=== PATIENT | female | born 2000 | race Caucasian/White ===

== ENCOUNTER 2022-11-22 09:29 | Day surgery (SDC) | payer MEDICAID, OTHER ==
[2022-11-22 09:55] LABS: BASOPHILS # (AUTO) 0.1 10^3/uL (0.0-0.1); BASOPHILS % (AUTO) 0.4 %; EOSINOPHILS # (AUTO) 0.1 10^3/uL (0.0-0.7); EOSINOPHILS % (AUTO) 0.4 %; HCT - HEMATOCRIT 42.5 % (37.0-47.0); HGB - HEMOGLOBIN 14.3 g/dL (12.0-16.0); LYMPHOCYTES # (AUTO) 2.6 10^3/uL (1.5-3.5); MEAN CORPUSCULAR HEMOGLOBIN 29.7 pg (27.0-31.0); MEAN CORPUSCULAR HGB CONC 33.6 g/dL (32.0-36.0); MEAN CORPUSCULAR VOLUME 88.4 fL (81.0-99.0); MEAN PLATELET VOLUME 9.6 fL (7.9-10.8); MONOCYTES # (AUTO) 0.7 10^3/uL (0.0-1.0); NEUTROPHILS # (AUTO) 8.5 10^3/uL (1.5-6.6); NEUTROPHILS % (AUTO) 70.9 %; PLT - PLATELET COUNT 359 10^3/uL (130-450); RED BLOOD COUNT 4.81 10^6/uL (4.20-5.40); RED CELL DISTRIBUTION WIDTH 12.7 % (12.0-15.0); WHITE BLOOD COUNT 11.9 x10^3/uL (4.8-10.8)
[2022-11-22 10:00] LABS: BILIRUBIN,URINE NEGATIVE (NEGATIVE); GLUCOSE, URINE (UA) NEGATIVE (NEGATIVE); KETONES,URINE (UA) NEGATIVE (NEGATIVE); LEUKOCYTE ESTERASE, URINE MODERATE (NEGATIVE); NITRITE,URINE NEGATIVE (NEGATIVE); OCCULT BLOOD,URINE NEGATIVE (NEGATIVE); PH,URINE 5.5 PH (5.0-7.5); PROTEIN,URINE NEGATIVE (NEGATIVE); UROBILINOGEN,URINE 0.2 (NORMAL) E.U./dL (NORMAL)
[2022-11-22 10:06] LABS: CLARITY,URINE SL (CLEAR); HCG UR QUAL NEGATIVE
[2022-11-22 10:07] LABS: BACTERIA,URINE Moderate /HPF (None Seen); CRYSTALS,URINE 3-5 Calcium Oxalate /LPF; MUCUS,URINE Moderate Strands; RBC,URINE 0-5 /HPF (0-5); SQUAMOUS EPITHELIAL CELL,UR MOD Squamous (<= Few)
[2022-11-22 10:15] LABS: ALBUMIN 4.4 g/dL (3.2-5.5); ALBUMIN/GLOBULIN RATIO 1.1 (1.0-2.2); BILIRUBIN,TOTAL 0.6 mg/dL (0.2-1.0); CALCIUM 9.9 mg/dL (8.5-10.3); CREATININE 0.9 mg/dL (0.4-1.0); POTASSIUM 3.8 mmol/L (3.5-5.0); TOTAL PROTEIN 8.3 g/dL (6.7-8.2)
[2022-11-22] MEDS ORDERED: ONDANSETRON 4 MG/2 ML VIAL IVP STA (10:25)
[2022-11-22] MEDS ORDERED: KETOROLAC 15 MG/ML VIAL IVP STA (10:25)
[2022-11-22] MEDS ORDERED: HYDROmorphone 1 MG/ML CARPUJECT IVP STA ×2 (10:25→12:42)
[2022-11-22] MEDS ORDERED: SODIUM CHLORIDE 0.9% 1,000 ML IV STA (10:25)
--- NOTE | 2022-11-22 10:26 | ED Physician Documentation ---
PD HPI ABD PAIN - Stated complaint Stated Complaint: ABD/LOW BK PX - Chief complaint Chief Complaint: Abd Pain - History obtained from History obtained from: Patient - History of Present Illness Timing - onset: How many days ago (2) Timing - duration: Days (2) Timing - details: Gradual onset Quality: Cramping, Aching, Pain Location: RLQ, Suprapubic Radiation: Lower back Improved by: Laying still Worsened by: Moving, Palpation Associated symptoms: Nausea, Diarrhea (today started with watery diarrhea x few movements. No noted blood.) Review of Systems Constitutional: reports: Fever, Myalgias Nose: denies: Rhinorrhea / runny nose, Congestion Throat: denies: Sore throat Respiratory: denies: Cough GI: reports: Abdominal Pain, Nausea, Vomiting, Diarrhea (few episodes this morning.). 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 She is scheduled actually for tonsillectomy on the which is in 3 days. She hopes to still be able to get the surgery done.) Psych: None - Present Medications Home Medications: Ambulatory Orders Medication Instructions Recorded Confirmed No Known Home Medications 11/22/22 11/22/22 - Allergies Allergies/Adverse Reactions: Allergies Allergy/AdvReac Type Severity Reaction Status Date / Time Penicillins Allergy Edema Verified 11/22/22 09:43 PD ED PE NORMAL - Vitals Vital signs reviewed: Yes - General General: Alert and oriented X 3, Well developed/nourished - Neck Neck: Supple, no meningeal sign, No adenopathy - Cardiac Cardiac: RRR, No murmur - Respiratory Respiratory: Clear bilaterally - Abdomen Abdomen: Normal bowel sounds, Soft, No organomegaly, Other (She has considerable tenderness in the lower abdomen midline and to the right in particular. There is some percussion tenderness. No referred tenderness from the upper abdomen. No CVA tenderness.) Results - Vitals Vitals: Vital Signs - 24 hr 11/22/22 11/22/22 11/22/22 09:38 11:03 12:00 Temperature 36.4 C L Heart Rate 88 75 66 Respiratory 16 16 16 Rate Blood Pressure 120/85 H 124/71 116/71 O2 Saturation 100 100 100 11/22/22 13:30 Temperature Heart Rate 61 Respiratory 16 Rate Blood Pressure 113/85 H O2 Saturation 99 Oxygen O2 Source Room air - Labs Labs: Laboratory Tests 11/22/22 11/22/22 11/22/22 09:50 09:51 09:51 WBC 11.9 H RBC 4.81 Hgb 14.3 Hct 42.5 MCV 88.4 MCH 29.7 MCHC 33.6 RDW 12.7 Plt Count 359 MPV 9.6 Neut # (Auto) 8.5 H Lymph # (Auto) 2.6 Reeves # (Auto) 0.7 Eos # (Auto) 0.1 Baso # (Auto) 0.1 Absolute Nucleated RBC 0.00 Nucleated RBC % 0.0 Sodium 141 Potassium 3.8 Chloride 107 Carbon Dioxide 25 Anion Gap 9.0 BUN 10 Creatinine 0.9 Estimated GFR (MDRD) 81 L Glucose 97 Calcium 9.9 Total Bilirubin 0.6 AST 26 ALT 28 Alkaline Phosphatase 75 Total Protein 8.3 H Albumin 4.4 Globulin 3.9 Albumin/Globulin Ratio 1.1 Lipase 30 Urine Color YELLOW Urine Clarity SL Urine pH 5.5 Ur Specific Hartman >=1.030 H Urine Protein NEGATIVE Urine Glucose (UA) NEGATIVE Urine Ketones NEGATIVE Urine Occult Blood NEGATIVE Urine Nitrite NEGATIVE Urine Bilirubin NEGATIVE Urine Urobilinogen 0.2 (NORMAL) Ur Leukocyte Esterase MODERATE H Urine RBC 0-5 Urine WBC 11-25 H Ur Squamous Epith Cells MOD Squamous H Urine Crystals 3-5 Calcium Oxalate Urine Bacteria Moderate H Urine Mucus Moderate Strands Ur Microscopic Review INDICATED Urine Culture Comments NOT INDICATED Urine HCG, Qual NEGATIVE - Rads (name of study) abd/pelvic CT Relevant Findings:: Discussed with rads (Appendix is at the upper limits of normal size with periappendiceal stranding consistent with mild appendicitis. No other abnormalities.), EMP independent interpretation of test, See rad report PD Medical Decision Making - ED course Complexity details: considered differential (She had onset of lower abdominal pain 2 days ago that was present for much of the day then decreased some. She was still able to eat. Pain increased again last night into today and became more severe associated with some diarrhea and nausea.), d/w patient Social Determinants of Health: The patient in the past has had recurrent tonsillitis and is actually scheduled for tonsillectomy 3 days from now. She would prefer to still be able to get her tonsil surgery. I will have her discuss with Dr. Osman the surgeon the potential for that. In the area she could have surgery on her appendix and would likely be discharged this evening. She would be sore of course but theoretically could still have surgery on her tonsils on Friday. ED course: The patient had onset of mid to lower abdominal pain 2 days ago which lasted for 6 to 8 hours and then decreased some but not completely resolved. It then increased again starting last night into this morning. She denied any dysuria. She denies any vaginal bleeding or discharge. Her menses are irregular due to prior Depo shots. She did notice several watery loose stools this morning without any noted blood or melena. It was not malodorous. The patient has ongoing pain. She has tenderness markedly in the lower abdomen predominantly on the right. There is some percussion tenderness as well. Consideration of possible viral enteritis but she has enough tenderness locally to be concern for appendicitis. She did have an IV started and was given IV Zofran and Dilaudid and Toradol. This provided her reasonable improvement in her pain and cessation of her nausea. The patient had a CT scan ordered by me for concern of appendicitis or other local bacterial infections. Her CBC showed an elevated white count after my review. Hemoglobin was normal and reviewed. Her basic chemistry panel did not show any elevation of the liver enzymes and kidney function was good as well. I reviewed the electrolytes and chemistry panel. She did have a CT scan of the abdomen and pelvis. Initial impression on my view was possible appendicitis but I waited the radiology confirmation. The radiologist called and I talked with him directly with the diagnosis of appendicitis. I called and paged Dr. Osman who is on-call for surgery. He came through the department and I discussed with him the patient and the CT findings. He will evaluate the patient. On reexamination the patient was having some increasing pain again and she is given a repeat dose of Dilaudid 1 mg IV. This improved her symptoms. The patient is now awaiting presumed going to the OR for appendicitis. I did initiate some ceftriaxone and metronidazole given she is allergic to penicillin. She is maintained n.p.o. Departure - Departure Disposition: ED Transfer to [facility] Clinical Impression: Lower abdominal pain, Acute appendicitis Condition: Stable Record reviewed to determine appropriate education?: Yes
[2022-11-22] MEDS ORDERED: iohexoL-300 100 ML VIAL ONE (11:29)
--- NOTE | 2022-11-22 12:28 | CT Report ---
PROCEDURE: ABDOMEN/PELVIS W INDICATIONS: lower abd pain CONTRAST: 100ml omni 300 TECHNIQUE: After the administration of intravenous contrast, 5 mm thick sections acquired from the diaphragms to the symphysis. 5 mm thick coronal and sagittal reformats were acquired. For radiation dose reducti on, the following was used: automated exposure control, adjustment of mA and/or kV according to mildred ent size. COMPARISON: None. FINDINGS: Image quality: Excellent. ABDOMEN: Lung bases: Lung bases are clear. Heart size is normal. Solid organs: Liver and spleen are normal in size and enhancement. Focal fatty eventration at the fa lciform ligament. Gallbladder is within normal limits. Biliary system is non dilated. Pancreas enh ances normally. No adrenal nodules. Kidneys demonstrate normal size and enhancement, without hydron ephrosis. Peritoneum and bowel: The appendix is at the upper limits of normal in size measuring 0.7 cm, (03/09). There is minimal periappendiceal stranding. No appendicolith is seen. No extraluminal gas. No small bowel obstruction. Nodes and vessels: No retroperitoneal or mesenteric adenopathy by size criteria. Aorta and inferior vena cava are normal in size. Miscellaneous: No ventral hernias. PELVIS: Genitourinary: Bladder wall thickness is normal. Anteverted uterus. No free fluid. Miscellaneous: No inguinal hernias or adenopathy. Bones: No suspicious bony lesions. No vertebral body compression fractures. IMPRESSION: Findings most consistent with mild appendicitis. Results were communicated to Dr. Sukh Kraus at 11/22/2022 12:25 PM PST. Reviewed by: Enrico Rodriguez MD on 11/22/2022 12:26 PM PST Approved by: Enrico Rodriguez MD on 11/22/2022 12:26 PM PST Station ID: [id number]
[2022-11-22] MEDS ORDERED: iohexoL-300 100 ML VIAL IVP ONE (12:54)
[2022-11-22] MEDS ORDERED: cefTRIAXone 1 GM VIAL IVP STA (13:03)
[2022-11-22] MEDS ORDERED: metroNIDAZOLE 500 MG/100 ML 500 MG/100 ML BAG IV ONE (13:35)
--- NOTE | 2022-11-22 14:14 | ANESTHESIA ---
Pre-Anesthesia VS, & Labs - Diagnosis appendicitis - Procedure laparoscopic appendectomy Vital Signs: Temp Pulse Resp BP Pulse Ox O2 Flow Rate 36.4 C L 61 16 113/85 H 99 11/22/22 09:38 11/22/22 13:30 11/22/22 13:30 11/22/22 13:30 11/22/22 13:30 Height: 5 ft 9 in Weight (kg): 79.379 kg Body Mass Index: 25.8 BMI Classification: Overweight - NPO >8 hours - Is Patient ?: No - Lab Results Current Lab Results: Laboratory Tests 11/22/22 09:51: Sodium 141, Potassium 3.8, Chloride 107, Carbon Dioxide 25, Anion Gap 9.0, BUN 10, Creatinine 0.9, Estimated GFR (MDRD) 81 L, Glucose 97, Calcium 9.9, Total Bilirubin 0.6, AST 26, ALT 28, Alkaline Phosphatase 75, Total Protein 8.3 H, Albumin 4.4, Globulin 3.9, Albumin/Globulin Ratio 1.1, Lipase 30 11/22/22 09:51: WBC 11.9 H, RBC 4.81, Hgb 14.3, Hct 42.5, MCV 88.4, MCH 29.7, MCHC 33.6, RDW 12.7, Plt Count 359, MPV 9.6, Neut # (Auto) 8.5 H, Lymph # (Auto) 2.6, [place] # (Auto) 0.7, Eos # (Auto) 0.1, Baso # (Auto) 0.1, Absolute Nucleated RBC 0.00, Nucleated RBC % 0.0 Fish Bones: 11/22/22 09:51 11/22/22 09:51 Home Medications and Allergies Active Medications Metronidazole (Flagyl 500 Mg/100 Ml) 500 mg in 100 mls @ 100 mls/hr IV ONCE ONE Stop: 11/22/22 14:34 Last Admin: 11/22/22 13:36 Dose: 100 mls/hr No Known Home Medications 11/22/22 Allergies/Adverse Reactions: Allergies Allergy/AdvReac Type Severity Reaction Status Date / Time Penicillins Allergy Edema Verified 11/22/22 09:43 Exam General: Alert, Oriented x3 Mallampati classification: I Thyromental Distance: greater than 6 cm Respiratory: Lungs clear Cardiovascular: Regular rate, Normal S1, Normal S2 Plan Anesthesia Type: General Consent for Procedure(s) Verified and Reviewed: Yes Code Status: Attempt Resuscitation ASA classification: 2-Mild systemic disease Is this case an emergency?: Yes
[2022-11-22] MEDS ORDERED: LIDOCAINE MPF 2%-EPI 1:200000 20 ML VIAL ONE (14:17)
[2022-11-22] MEDS ORDERED: BUPIVACAINE 0.25% PF 10 ML VIAL ONE (14:17)
--- NOTE | 2022-11-22 15:24 | HISTORY & PHYSICAL EXAMINATION ---
Chief Complaint - Chief Complaint Chief Complaint: abdominal pain History of Present Illness - History Obtained From Records Reviewed: yes History obtained from: pt Exam Limitations: none - History of Present Illness HPI Comment/Other: right lower quarant pain x 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 She is scheduled actually for tonsillectomy on the which is in 3 days. She hopes to still be able to get the surgery done.) Psych: reports: None Meds/Allgy - Home Medications Home Medications: Ambulatory Orders Medication Instructions Recorded Confirmed No Known Home Medications 11/22/22 11/22/22 - Allergies Allergies/Adverse Reactions: Allergies Allergy/AdvReac Type Severity Reaction Status Date / Time Penicillins Allergy Edema Verified 11/22/22 09:43 Review of Systems - Other Findings Other Findings: 10 pt ros as above otherwise unremarkable Exam - Vital Signs Reviewed Vital Signs: Yes Vital Signs: Vital Signs x48h Temp Pulse Resp BP Pulse Ox 11/22/22 15:00 66 16 97/80 99 11/22/22 13:30 61 16 113/85 H 99 11/22/22 12:00 66 16 116/71 100 11/22/22 11:03 75 16 124/71 100 11/22/22 09:38 36.4 C L 88 16 120/85 H 100 - Physical Exam General Appearance: positive: No acute distress, Alert Eyes Bilateral: positive: PERRL, EOMI ENT: positive: No signs of dehydration Neck: positive: No JVD, Trachea midline Respiratory: positive: No respiratory distress, Breath sounds nml Cardiovascular: positive: Regular rate & rhythm Abdomen: positive: No distention, Other (right lower quadrant tenderness) Neurologic/Psychiatric: positive: Oriented x3 Conclusion/Plan - Problem List (1) Acute appendicitis Conclusion/Plan: plan appendectomy. parq held and consent obtained - Lab Results Fish Bones: 11/22/22 09:51 11/22/22 09:51 - Diagnostic Imaging Results Diagnostic Imaging Results: positive: Read independently
[2022-11-22] MEDS ORDERED: PROPOFOL 200 MG/20 ML VIAL IVP ONE (15:37)
[2022-11-22] MEDS ORDERED: ONDANSETRON 4 MG/2 ML VIAL ONE (15:37)
[2022-11-22] MEDS ORDERED: DEXAMETHASONE 4 MG/ML VIAL ONE (15:37)
[2022-11-22] MEDS ORDERED: ROCURONIUM 50 MG/5 ML VIAL ONE (15:37)
[2022-11-22] MEDS ORDERED: MIDAZOLAM 2 MG/2 ML VIAL ONE (15:39)
[2022-11-22] MEDS ORDERED: fentaNYL 100 MCG/2 ML VIAL ONE ×2 (15:39→17:42)
[2022-11-22] MEDS ORDERED: LIDOCAINE-PF 2% 10 ML AMP SUBQ ONE (16:07)
[2022-11-22] MEDS ORDERED: METOCLOPRAMIDE 10 MG/2 ML VIAL IVP PRN (16:16)
[2022-11-22] MEDS ORDERED: ePHEDrine 50 MG/ML VIAL IVP PRN (16:16)
[2022-11-22] MEDS ORDERED: NALOXONE 0.4 MG/ML VIAL IVP PRN (16:16)
[2022-11-22] MEDS ORDERED: ATROPINE ABBOJECT 1 MG/10 ML SYRINGE IVP PRN (16:16)
[2022-11-22] MEDS ORDERED: MORPHINE 2 MG/ML CARPUJECT IVP PRN (16:16)
[2022-11-22] MEDS ORDERED: HYDROmorphone 0.5 MG/0.5 ML SYRINGE IVP PRN (16:16)
[2022-11-22] MEDS ORDERED: ONDANSETRON 4 MG/2 ML VIAL IVP PRN ×2 (16:16→17:31)
[2022-11-22] MEDS ORDERED: BUPIVACAINE 0.25% PF 10 ML VIAL SUBQ ONE (16:24)
[2022-11-22] MEDS ORDERED: SEVOFLURANE 250 ML LIQUID INH ONE (16:28)
[2022-11-22] MEDS ORDERED: ACETAMINOPHEN 1,000 MG/100 ML 1,000 MG/100 ML BAG IV ONE (16:40)
[2022-11-22] MEDS ORDERED: SUGAMMADEX 200 MG/2 ML VIAL IVP ONE (16:55)
[2022-11-22] MEDS ORDERED: LACTATED RINGERS 1,000 ML IV SCH (17:00)
[2022-11-22] MEDS ORDERED: KETOROLAC 30 MG/ML VIAL ONE (17:00)
[2022-11-22] MEDS ORDERED: LACTATED RINGERS 1,000 ML IV ONE (17:30)
[2022-11-22] MEDS ORDERED: HYDROcod/ACETAM 5/325 MG TABLET PO PRN (17:31)
--- NOTE | 2022-11-22 17:37 | OPERATIVE REPORT ---
Operative Report - General Procedure Date: 11/22/22 Planned Procedure: lap appy Pre-Op Diagnosis: appendicitis Procedure Performed: lap appy and lysis of adhesions Post Op Diagnosis: same and congential extra adhesions anterior colon to anterior abd wall. - Procedure Note Primary Surgeon: sean hsu Anesthesia Technique: General ET tube, Local Pathology: appendix Estimated Blood Loss (mL): 2 Drain/Tube Type: Other (none) Indications: appendicitis Findings: as above. 20 ml thin green fluid in pelvis. normal tubes and ovaries Complications: none - Other Other Information/Narrative: The patient was properly identified brought to the operating room and placed in supine position. The patient was previously given antibiotics. Sequential compression devices were placed. General endotracheal anesthesia was induced. The patient was prepped and draped in a sterile fashion. Local anesthetic was given to incision areas. An infraumbilical incision was made in and proceeded down to the fascia. The fascia was incised lifted upwards and abdomen entered with a Veress needle. CO2 was insufflated to a pressure of 15. A 12 mm trocar was placed with 30 degree scope. There was no evidence of injury from Veress needle or trocar placement. Under direct vision a 5 mm trocar was placed suprapubic and a 5 mm trocar was placed in the right upper quadrant. Appendix was identified and retracted anteriorly. 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 These were taken down with Metzenbaum and cautery. The right colon otherwise had normal attachments. Peritoneal attachments Of the appendix were taken down with careful use of cautery. Appendix was mobilized more anterior. A plane was then created between the mesoappendix and the appendix at the cecum. Appendix was divided with an Endo UDAY intestinal load to include up a small portion of the cecum. The mesoappendix was then divided with an Endo UDAY vascular load. There was secure closure at the cecum and hemostasis was assured. The appendix was brought out. The abdomen was thoroughly irrigated and hemostasis again assured. Trochars were removed under direct vision. Fascia at the infraumbilical site was closed with a running 0 Vicryl suture. Subcutaneous tissue was irrigated and skin reapproximated with buried interrupted 4-0 Monocryl. Dressings were applied. The patient tolerated the procedure well was awakened and brought to recovery in good condition.
[2022-11-22] MEDS: fentaNYL 100 MCG/2 ML VIAL IVP PRN ×2 (17:43→17:53)
--- NOTE | 2022-11-22 17:57 | ANESTHESIA POST OP EVALUATION ---
Anesthesia Post Eval - Post Anesthesia Eval Vitals: Last Vital Signs Temp 36.3 C L 11/22/22 17:49 Pulse 64 11/22/22 17:49 Resp 16 11/22/22 17:49 BP 121/80 11/22/22 17:49 Pulse Ox 99 11/22/22 17:49 O2 Flow Rate CV Function Including HR & BP: Stable Pain Control: Satisfactory Nausea & Vomiting: Negative Mental Status: Baseline Respiratory Status: Airway Patent Hydration Status: Satisfactory Anesthesia Complications: None
[2022-11-22] MEDS: HYDROmorphone 0.5 MG/0.5 ML SYRINGE IVP PRN ×2 (21:19→22:17)
[2022-11-22 23:00] VITALS: BP 111/67
== END 2022-11-22 23:20 | disposition home or self-care (01) ==
LOC: ED 09:29 → SDS 14:35 → MS2 17:57 → SDS 23:20
PROVIDERS: ATTEND Surgery
PROC: 0DTJ4ZZ Resection of Appendix, Percutaneous Endoscopic Approach (ICD-10-PCS; principal; 2022-11-22 16:15)
DX: K35.80 Unspecified acute appendicitis (principal)
CPT/HCPCS: 36415; 44970; 74177; 80053; 81001; 81025; 83690; 85025; 96365; 96375; 96376; 99284; 99285; A9270; J0131; J1170; J3490; J7120; Q9967; 81003; 87086

== ENCOUNTER 2022-12-01 16:39 | Emergency (ER) | payer MEDICAID ==
[2022-12-01 18:55] LABS: BASOPHILS % (AUTO) 0.5 %; EOSINOPHILS # (AUTO) 0.1 10^3/uL (0.0-0.7); EOSINOPHILS % (AUTO) 1.6 %; HCT - HEMATOCRIT 40.7 % (37.0-47.0); HGB - HEMOGLOBIN 13.3 g/dL (12.0-16.0); LYMPHOCYTES # (AUTO) 2.6 10^3/uL (1.5-3.5); LYMPHOCYTES % (AUTO) 32.3 %; MEAN CORPUSCULAR HGB CONC 32.7 g/dL (32.0-36.0); MEAN CORPUSCULAR VOLUME 91.7 fL (81.0-99.0); MEAN PLATELET VOLUME 9.9 fL (7.9-10.8); MONOCYTES # (AUTO) 0.6 10^3/uL (0.0-1.0); MONOCYTES % (AUTO) 7.2 %; NEUTROPHILS # (AUTO) 4.7 10^3/uL (1.5-6.6); PLT - PLATELET COUNT 314 10^3/uL (130-450); RED BLOOD COUNT 4.44 10^6/uL (4.20-5.40); RED CELL DISTRIBUTION WIDTH 13.4 % (12.0-15.0); WHITE BLOOD COUNT 8.1 x10^3/uL (4.8-10.8)
[2022-12-01 19:08] LABS: ALBUMIN/GLOBULIN RATIO 1.2 (1.0-2.2); BILIRUBIN,TOTAL 0.6 mg/dL (0.2-1.0); CALCIUM 9.4 mg/dL (8.5-10.3); CREATININE 0.7 mg/dL (0.4-1.0); POTASSIUM 4.2 mmol/L (3.5-5.0); TOTAL PROTEIN 7.3 g/dL (6.7-8.2)
[2022-12-01] MEDS ORDERED: HYDROmorphone 1 MG/ML CARPUJECT IM STA (20:31)
[2022-12-01] MEDS ORDERED: KETOROLAC 30 MG/ML VIAL IM STA (20:31)
[2022-12-01] MEDS ORDERED: HYDROcod/ACETAM 5/325 MG TABLET PO STA (21:22)
[2022-12-01] MEDS ORDERED: DEXAMETHASONE 10 MG/ML VIAL PO STA (21:22)
[2022-12-01] MEDS ORDERED: CHERRY SYRUP 10 ML UDC PO ONE (21:22)
[2022-12-01] MEDS ORDERED: HYDROcod/ACET 5/325 Prepack 4 PO STA (21:22)
[2022-12-01] MEDS ORDERED: LACTULOSE 10 GM /15 ML UDC PO STA (21:23)
[2022-12-01 21:51] VITALS: BP 119/70
--- NOTE | 2022-12-04 01:57 | ED Physician Documentation ---
History of Present Illness - Stated complaint Stated Complaint: POST OP COMPLICATIONS - Chief complaint Chief Complaint: Abd Pain - History obtained from History obtained from: Patient - Additonal information Additional information: Patient has two chief complaints/concerns. She is predominantly concerned regarding feeling constipated x 9 days. She had an appendectomy ([facility]) 11/22 and she says she has not had a BM since that time. She occasionally passes gas, and very small pellet stool. She has urge to defecate and feels abdominal bloating. She was prescribed vicodin (18 tabs) 11/22 (post-operatively). Despite her report of not having any BM , she then underwent tonsillectomy three days later (11/25) at [facility] (Dr. Chen). She was prescribed oxycodone 5mg IR x 20 tablets 11/25 (post-operatively) but these were not controlling her post-operative throat pain and thus a second prescription for oxycodone 5mg IR #20 was again prescribed on 11/28. Her secondary complaint is increasing difficulty swallowing even liquids, at times says she cannot talk. I do note that she is swallowing water when I first enter room and she is able to talk with me, albeit quietly, but with full sentences and converses appropriately. She denies fevers. She says she tried to contact the surgical group at [facility] but was told no surgeon was available , that medical advice could not be given over the phone, and that she can always come to the emergency department if she feels she needs emergent evaluation. She says she then contacted her ENT group in [facility], was able to speak with someone from that group and was advised to come to the ED for evaluation. Patient has tried miralax for the constipation without effect. She otherwise has been using milder remedies such as drinking tea. Review of Systems Constitutional: denies: Fever Throat: reports: Sore throat GI: reports: Abdominal Swelling, Constipation. 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 She is scheduled actually for tonsillectomy on the which is in 3 days. She hopes to still be able to get the surgery done.) Psych: None - Past Surgical History Past Surgical History: Yes General: Appendectomy HEENT: Tonsil/Adenoidectomy - Present Medications Home Medications: Ambulatory Orders Medication Instructions Recorded Confirmed HYDROcod/ACETAM 5/325 [Ira 5/325] 1 each PO Q6H PRN #20 tablet 11/22/22 Ondansetron Odt [Zofran Odt] 4 mg PO Q6H PRN #10 tablet 11/22/22 Lactulose 10 gm PO BID PRN #120 ml 12/01/22 - Allergies Allergies/Adverse Reactions: Allergies Allergy/AdvReac Type Severity Reaction Status Date / Time Penicillins Allergy Edema Verified 12/01/22 16:44 PD ED PE NORMAL - Vitals Vital signs reviewed: Yes - General General: Alert and oriented X 3, No acute distress, Well developed/nourished - HEENT HEENT: Moist mucous membranes, Other (bilateral posterior oropharyngeal white granulation tissue, appropriate/expected appearance given recent tonsillectomy. no bleeding, no asymmetry, no erythema, and airway is widely patent) - Neck Neck: Supple, no meningeal sign - Cardiac Cardiac: RRR, No murmur - Respiratory Respiratory: No respiratory distress, Clear bilaterally - Abdomen Abdomen: Soft, Non tender, Non distended, Other (trocar sites are c/d/i without significant tenderness; no rebound or guarding. no erythema). No: Normal bowel sounds (decreased bowel sounds) Results - Vitals Vitals: Oxygen O2 Source Room air - Labs Labs: Laboratory Tests 12/01/22 12/01/22 18:50 18:50 WBC 8.1 RBC 4.44 Hgb 13.3 Hct 40.7 MCV 91.7 MCH 30.0 MCHC 32.7 RDW 13.4 Plt Count 314 MPV 9.9 Neut # (Auto) 4.7 Lymph # (Auto) 2.6 Turner # (Auto) 0.6 Eos # (Auto) 0.1 Baso # (Auto) 0.0 Absolute Nucleated RBC 0.00 Nucleated RBC % 0.0 Sodium 139 Potassium 4.2 Chloride 105 Carbon Dioxide 27 Anion Gap 7.0 BUN 13 Creatinine 0.7 Estimated GFR (MDRD) 107 Glucose 89 Calcium 9.4 Total Bilirubin 0.6 AST 16 ALT 18 Alkaline Phosphatase 57 Total Protein 7.3 Albumin 4.0 Globulin 3.3 Albumin/Globulin Ratio 1.2 Lipase 31 PD Medical Decision Making - ED course Complexity details: reviewed old records, reviewed results, re-evaluated patient, considered differential, d/w patient ED course: CBC and ER abdominal panel are without any abnormal results. She is afebrile in ED. While she does speak somewhat softly, she is easy to understand and speaks in full sentences. She is noted to be drinking sips of liquids at times, but her c/o of ongoing odynophagia would be consistent with appearance of posterior oropharynx. We discussed that stronger narcotic/opiate analgesics will both provide stronger relief while tending towards worsening constipation. After we discussed these concepts, we then discussed options for pain control and mutually agreed on IM toradol and IM dilaudid. She says she still has some oxycodone remaining but notes that it has not pr ovided adequate nor lasting relief of the sore throat/odynophagia. I discussed this case with Dr. Sparrow, insulation hoseman for [facility] ENT. He had not spoken to this patient this evening, unclear who she might have spoken to. He recommends decadron 20mg IV. As she does not have an IV, he says IM or even PO would be adequate, but he stresses the 20mg dose no matter the route. He says prescriptions for more steroids and/or pain medications can be deferred to the discretion of Dr. Chen, and thus the strong recommendation from Dr. Sparrow and me is for patient to contact Dr. Chen's group in the morning as soon as they open to arrange for immediate follow up. I instructed her to try to obtain same-day appointment, emphasizing that she would likely run out of prescription pain medication by the end of the day but that both Dr. Sparrow and me thought it best for her ENT to reevaluate the situation himself to determine next course of action regarding pain medication. On reevaluation, I explained all of this information to her and she expresses understanding of these instructions. I provided a take-home pack of vicodin, and told her that she can take one tablet of the vicodin IN ADDITION to the o xycodone she is taking. She is given 1 tablet of vicodin prior to d/c. I instructed her to continue to use the miralax, and to add fleets enemas, and lactulose (given dose of lactulose to take home with rx provided). I instructed her to contact her surgical group to update them on this problem and arrange for next available appointment for reevaluation Departure - Departure Disposition: 01 Home, Self Care Clinical Impression: Post-op pain Constipation Qualifiers: Constipation type: unspecified constipation type Qualified Code(s): K59.00 - Constipation, unspecified Condition: Good Instructions: ED Constipation, ED Post Op Pain Prescriptions: Lactulose 10 gm PO BID PRN #120 ml PRN Reason: Constipation Comments: I discussed your case with Dr. Sparrow (on-call ENT for [facility]). He recommended the one-time dose of steroid that was given in the emergency department (Decadron, which is given orally). He also recommends that you contact Dr. Chen's office in the morning to arrange for immediate follow up/reevaluation. You have been provided a take-home pack of Vicodin; you can take this in additio n to the oxycodone you are taking, but be sure to take the oxycodone no more than the label instructions. I am also providing you with a prescription for lactulose; this should help with the constipation. Discharge Date/Time: 12/01/22 21:51
== END 2022-12-01 21:51 | disposition home or self-care (01) ==
LOC: ED 16:39
DX: G89.18 Other acute postprocedural pain (principal); K59.00 Constipation, unspecified
CPT/HCPCS: 36415; 80053; 83690; 85025; 96372; 99283; 99284; A9270; J1170

== ENCOUNTER 2023-03-05 17:36 | Emergency (ER) | payer MEDICAID ==
--- NOTE | 2023-03-05 18:43 | ED Physician Documentation ---
PD HPI ABD PAIN - Stated complaint Stated Complaint: RT FLANK PAIN - Chief complaint Chief Complaint: Abd Pain - History obtained from History obtained from: Patient - History of Present Illness Quality: Cramping, Sharp Location: RUQ Radiation: Other (Epigastrium) Worsened by: Position, Palpation. No: Eating, Moving, Breathing, Other Associated symptoms: Nausea, Constipation. No: Fever, Vomiting, Hematemesis, Diarrhea, Melena, Hematochezia, Dysuria, Hematuria, Chest pain, Dizzy, Near syncope / syncope, Loss of appetite, Weight loss, Vaginal bleeding, Vaginal dc, Testicular pain, Other Similar symptoms before: Diagnosis - Additional information Additional information: 22-year-old female presents with abdominal pain and constipation. She has been dealing with the constipation for several months since she had her appendectomy in November however the last 3 days she has had increasing abdominal pain, more localized to the right upper quadrant and radiates into the epigastrium. She has had nausea but no vomiting, no fever or chills, no chest pain or difficulty breathing. She has been taking MiraLAX for constipation but does not feel like she has had any relief. She has not had any dysuria urgency or frequency and denies any chance of . She states that she is concerned because her mother of colon cancer about 4 years ago when she was only 43 years old. The patient has had a prior colonoscopy and is due for another colonoscopy for checkup as she states they found something "abnormal" When they removed her appendix. She has not been able to have this done yet however. 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 She is scheduled actually for tonsillectomy on the which is in 3 days. She hopes to still be able to get the surgery done.) Psych: None - Past Surgical History Past Surgical History: Yes General: Appendectomy HEENT: Tonsil/Adenoidectomy - Present Medications Home Medications: Ambulatory Orders Medication Instructions Recorded Confirmed HYDROcod/ACETAM 5/325 [[place] 5/325] 1 each PO Q6H PRN #20 tablet 11/22/22 Ondansetron Odt [Zofran Odt] 4 mg PO Q6H PRN #10 tablet 11/22/22 Lactulose 10 gm PO BID PRN #120 ml 12/01/22 Lactulose 10 gm PO TID PRN #30 packet 03/05/23 - Allergies Allergies/Adverse Reactions: Allergies Allergy/AdvReac Type Severity Reaction Status Date / Time Penicillins Allergy Edema Verified 03/05/23 17:47 PD ED PE NORMAL - Vitals Vital signs reviewed: Yes - General General: Alert and oriented X 3, No acute distress, Well developed/nourished - HEENT HEENT: Atraumatic, Moist mucous membranes - Cardiac Cardiac: RRR, No murmur - Respiratory Respiratory: No respiratory distress, Clear bilaterally - Abdomen Abdomen: Normal bowel sounds, Non distended, Other (Right upper quadrant tender to palpation, no distention, no other abdominal tenderness) - Back Back: No CVA TTP, No spinal TTP - Derm Derm: Normal color, Warm and dry - Neuro Neuro: Alert and oriented X 3 Eye Opening: Spontaneous Motor: Obeys Commands Verbal: Oriented GCS Score: 15 - Psych Psych: Normal mood, Normal affect Results - Vitals Vitals: Vital Signs - 24 hr 03/05/23 03/05/23 03/05/23 17:47 17:56 18:40 Temperature 36.5 C Heart Rate 80 Respiratory 16 18 17 Rate Blood Pressure 118/62 O2 Saturation 100 03/05/23 19:49 Temperature Heart Rate Respiratory 18 Rate Blood Pressure O2 Saturation Oxygen O2 Source Room air - Labs Labs: Laboratory Tests 03/05/23 03/05/23 03/05/23 18:40 18:40 18:40 WBC 7.3 RBC 4.87 Hgb 15.0 Hct 43.6 MCV 89.5 MCH 30.8 MCHC 34.4 RDW 12.1 Plt Count 255 MPV 10.9 H Neut # (Auto) 4.0 Lymph # (Auto) 2.5 [place] # (Auto) 0.7 Eos # (Auto) 0.1 Baso # (Auto) 0.1 Absolute Nucleated RBC 0.00 Nucleated RBC % 0.0 Sodium 140 Potassium 3.8 Chloride 106 Carbon Dioxide 28 Anion Gap 6.0 BUN 10 Creatinine 0.8 Estimated GFR (MDRD) 91 Glucose 71 Calcium 9.2 Total Bilirubin 0.6 AST 15 ALT 11 Alkaline Phosphatase 67 Total Protein 7.7 Albumin 4.5 Globulin 3.2 Albumin/Globulin Ratio 1.4 Lipase 37 Urine Color YELLOW Urine Clarity CLEAR Urine pH 7.5 Ur Specific [place] 1.015 Urine Protein NEGATIVE Urine Glucose (UA) NEGATIVE Urine Ketones NEGATIVE Urine Occult Blood NEGATIVE Urine Nitrite NEGATIVE Urine Bilirubin NEGATIVE Urine Urobilinogen 0.2 (NORMAL) Ur Leukocyte Esterase NEGATIVE Ur Microscopic Review NOT INDICATED Urine Culture Comments NOT INDICATED Urine HCG, Qual NEGATIVE - Rads (name of study) No standard instances Relevant Findings:: Final report received PD Medical Decision Making - ED course Complexity details: reviewed old records, reviewed results, re-evaluated patient, considered differential, d/w patient ED course: 22-year-old female presents with right upper quadrant abdominal pain For the past 3 days as well as longstanding constipation over the course of several months. She has been seen in the past for this. She states MiraLAX has not been helpful. She also has additional concerns as noted above given her mom's history of colon cancer at early age. Arrival here, the patient is nontoxic, stable vital signs. She does have right upper quadrant tenderness on exam but otherwise reassuring physical exam. Labs were obtained which were all stable, she does not have a Leukocytosis center liver function is normal, renal cyst is stable, no sign of infection. I did obtain abdominal CT though given her right upper quadrant pain and this was negative. The patient was given Toradol for her pain in advised that we will give her lactulose for her periodic constipation, she can otherwise follow-up with her PCP for this issue, and she was encouraged to schedule her outpatient colonoscopy. I discussed return precautions if new or worsening symptoms. Departure - Departure Disposition: 01 Home, Self Care Clinical Impression: Abdominal pain Qualifiers: Abdominal location: right lower quadrant Qualified Code(s): R10.31 - Right lower quadrant pain Constipation Qualifiers: Constipation type: chronic idiopathic constipation Qualified Code(s): K59.04 - Chronic idiopathic constipation Condition: Good Instructions: ED Abdominal Pain Female Non-Specific Abdominal Pain, ED Constipation Prescriptions: Lactulose 10 gm PO TID PRN #30 packet PRN Reason: Constipation Comments: Your CT scan and labs are all reassuring. I do not see substantial constipation or any reason for your abdominal pain at this time. Sometimes you can have irritable bowel syndrome or indigestion that can cause significant pain. Please do follow-up with your primary doctor and have your colonoscopy scheduled it was previously recommended.
[2023-03-05 18:57] LABS: BASOPHILS # (AUTO) 0.1 10^3/uL (0.0-0.1); BASOPHILS % (AUTO) 0.7 %; EOSINOPHILS # (AUTO) 0.1 10^3/uL (0.0-0.7); EOSINOPHILS % (AUTO) 0.8 %; HCT - HEMATOCRIT 43.6 % (37.0-47.0); LYMPHOCYTES # (AUTO) 2.5 10^3/uL (1.5-3.5); LYMPHOCYTES % (AUTO) 34.2 %; MEAN CORPUSCULAR HEMOGLOBIN 30.8 pg (27.0-31.0); MEAN CORPUSCULAR HGB CONC 34.4 g/dL (32.0-36.0); MEAN CORPUSCULAR VOLUME 89.5 fL (81.0-99.0); MEAN PLATELET VOLUME 10.9 fL (7.9-10.8); MONOCYTES # (AUTO) 0.7 10^3/uL (0.0-1.0); MONOCYTES % (AUTO) 9.2 %; PLT - PLATELET COUNT 255 10^3/uL (130-450); RED BLOOD COUNT 4.87 10^6/uL (4.20-5.40); RED CELL DISTRIBUTION WIDTH 12.1 % (12.0-15.0); WHITE BLOOD COUNT 7.3 x10^3/uL (4.8-10.8)
[2023-03-05 18:58] LABS: BILIRUBIN,URINE NEGATIVE (NEGATIVE); GLUCOSE, URINE (UA) NEGATIVE (NEGATIVE); KETONES,URINE (UA) NEGATIVE (NEGATIVE); LEUKOCYTE ESTERASE, URINE NEGATIVE (NEGATIVE); NITRITE,URINE NEGATIVE (NEGATIVE); OCCULT BLOOD,URINE NEGATIVE (NEGATIVE); PH,URINE 7.5 PH (5.0-7.5); PROTEIN,URINE NEGATIVE (NEGATIVE); UROBILINOGEN,URINE 0.2 (NORMAL) E.U./dL (NORMAL)
[2023-03-05 19:01] LABS: CLARITY,URINE CLEAR (CLEAR); HCG UR QUAL NEGATIVE
[2023-03-05 19:09] LABS: ALBUMIN 4.5 g/dL (3.2-5.5); ALBUMIN/GLOBULIN RATIO 1.4 (1.0-2.2); BILIRUBIN,TOTAL 0.6 mg/dL (0.2-1.0); CALCIUM 9.2 mg/dL (8.5-10.3); CREATININE 0.8 mg/dL (0.4-1.0); POTASSIUM 3.8 mmol/L (3.5-5.0); TOTAL PROTEIN 7.7 g/dL (6.7-8.2)
[2023-03-05] MEDS ORDERED: KETOROLAC 30 MG/ML VIAL IVP STA (19:09)
[2023-03-05] MEDS ORDERED: iohexoL-300 100 ML VIAL ONE (19:28)
--- NOTE | 2023-03-05 19:58 | CT Report ---
PROCEDURE: ABDOMEN/PELVIS W INDICATIONS: RUQ pain CONTRAST: 100mL Omni 300 TECHNIQUE: After the administration of IV contrast, 5 mm thick sections acquired from the diaphragms to the symp hysis. 5 mm thick coronal and sagittal reformats were acquired. For radiation dose reduction, the f ollowing was used: automated exposure control, adjustment of mA and/or kV according to patient size. COMPARISON: 11/22/2022 FINDINGS: Image quality: Excellent. Lung bases and heart: Unremarkable. Liver: No solid mass. Gallbladder and biliary tree: Within normal limits Spleen: No splenomegaly. Pancreas: No pancreatic ductal dilation. Adrenals: No adrenal nodule. Kidneys and ureters: No hydronephrosis. No renal cystic lesion which requires follow up. No solid mas s. Bowel and peritoneum: No bowel distension. No pathologic free fluid. Lymph nodes: No central or retroperitoneal adenopathy. Vessels: No infrarenal aortic aneurysm. PELVIS Reproductive organs: Unremarkable. Bladder: No abnormal wall thickening, accounting for underdistension. Pelvic lymph nodes: No pelvic adenopathy by size criteria. Bones: No aggressive osseous abnormality. Other: No significant ventral or inguinal hernia. IMPRESSION: No acute process. Reviewed by: Germaine Segundo MD on 03/05/2023 7:56 PM PDT Approved by: Germaine Segundo MD on 03/05/2023 7:56 PM PDT Station ID: [id number]
[2023-03-05 20:15] VITALS: BP 120/72
[2023-03-05] MEDS ORDERED: iohexoL-300 100 ML VIAL IVP ONE (21:03)
== END 2023-03-05 20:10 | disposition home or self-care (01) ==
LOC: ED 17:36
DX: K59.04 Chronic idiopathic constipation (principal)
CPT/HCPCS: 36415; 74177; 80053; 81003; 81025; 83690; 85025; 96374; 99283; 99284; Q9967; 81001; 87086

== ENCOUNTER 2023-03-27 17:20 | Emergency (ER) | payer MEDICAID ==
[2023-03-27 17:28] VITALS: BP 118/72
--- NOTE | 2023-03-27 18:35 | ED Physician Documentation ---
History of Present Illness - Stated complaint Stated Complaint: R SHOULDER PX - Chief complaint Chief Complaint: Ext Problem - History obtained from History obtained from: Patient - History of Present Illness Pain level max: 6 Pain level now: 5 - Additonal information Additional information: Patient is a 22-year-old female who presents to the emergency department right shoulder pain. This been ongoing for the past several days. She states that she was at home when her dog jumped on her shoulder, the dog is a [place]. She states the pain is worse with movement and better with rest. 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 No numbness or tingling. 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 HEENT: Other Psych: None - Past Surgical History Past Surgical History: Yes General: Appendectomy HEENT: Tonsil/Adenoidectomy - Present Medications Home Medications: Ambulatory Orders Medication Instructions Recorded Confirmed HYDROcod/ACETAM 5/325 [[place] 5/325] 1 - 2 ea PO Q6H PRN #10 tablet 03/27/23 Meloxicam [Mobic] 7.5 mg PO BID PRN #20 tablet 03/27/23 - Allergies Allergies/Adverse Reactions: Allergies Allergy/AdvReac Type Severity Reaction Status Date / Time Penicillins Allergy Edema Verified 03/27/23 17:23 - Social History Does the pt smoke?: No Smoking Status: Never smoker Does the pt drink ETOH?: No Does the pt have substance abuse?: No - Immunizations Immunizations are current?: Yes PD ED PE NORMAL - Vitals Vital signs reviewed: Yes - General General: Alert and oriented X 3, No acute distress - HEENT HEENT: Moist mucous membranes - Neck Neck: Supple, no meningeal sign - Cardiac Cardiac: RRR - Respiratory Respiratory: No respiratory distress, Clear bilaterally - Derm Derm: Warm and dry - Extremities Extremities: Other (R arm - Tender to palpation along the glenohumeral joint. No significant swelling. Neurovascular intact including axillary nerve. Limited range of motion with internal and external rotation. Unable to abduct the arm greater than 90 degrees. No bony tenderness. No deformity. ) - Neuro Neuro: Alert and oriented X 3 Results - Vitals Vitals: Vital Signs - 24 hr 03/27/23 17:23 Temperature 36.5 C Heart Rate 88 Respiratory 16 Rate Blood Pressure 118/72 O2 Saturation 98 Oxygen O2 Source Room air - Rads (name of study) Right shoulder x-ray Relevant Findings:: Final report received, See rad report PD Medical Decision Making - ED course Complexity details: reviewed results, re-evaluated patient, considered differential, d/w patient ED course: No acute findings on x-ray. Exam is consistent with a rotator cuff injury. We will place her on anti-inflammatories for home and prescribe a small amount of pain for breakthrough. No acute findings on x-ray. Placed in a sling for comfort. We will limit her duties at work as well. No evidence of fracture or dislocation. Patient counseled regarding signs and symptoms for which I believe and urgent re-evaluation would be necessary. Patient with good understanding of and agreement to plan and is comfortable going home at this time This document was made in part using voice recognition software. While efforts are made to proofread this document, sound alike and grammatical errors may occur. Patient was also instructed regarding exercises of the arm such as external and internal rotation along with wall walks. Departure - Departure Disposition: 01 Home, Self Care Clinical Impression: Right shoulder strain Qualifiers: Encounter type: initial encounter Qualified Code(s): S46.911A - Strain of unspecified muscle, fascia and tendon at shoulder and upper arm level, right arm , initial encounter Rotator cuff tendonitis Qualifiers: Laterality: right Qualified Code(s): M75.81 - Other shoulder lesions, right shoulder Condition: Good Instructions: ED Tendinitis Rotator Cuff Follow-Up: your,doctor in 1 week [Other] Prescriptions: Meloxicam [Mobic] 7.5 mg PO BID PRN #20 tablet PRN Reason: Pain HYDROcod/ACETAM 5/325 [[place] 5/325] 1 - 2 ea PO Q6H PRN #10 tablet PRN Reason: Pain Comments: You can buy a shoulder brace on [employer] for a compression/rotator cuff brace. This can help with your pain. Your prescriptions were sent to [facility] in [place]. Please do the stretching exercises as we talked about today as well. Please follow-up with your doctor for further care I am prescribing a short course of narcotic pain medication for you. These are potentially dangerous and addictive medications that should be used carefully. These medications may constipate you. Take an jdat-rzs-pjpdkuk stool softener (docusate) twice daily with plenty of water while taking these medications. If you go 24 hours without a bowel movement, take [id number] miralax, per package instructions. Do not drink or drive while taking these medications. If you received narcotic or sedating medications while in the emergency department, do not drive for 24 hours. Store this medication in a safe, secure place and out of reach of children. It is a violation of federal law to give or sell this medication to another person or to use in a manner other than prescribed. The ED will not refill narcotic prescriptions, including prescriptions lost or stolen. To dispose of unwanted medications: 1. [facility] [address] in [place] has a medication drop box. They accept prescription medications (in pill form) Friday through Friday 9:00 a.m. to 5:00 p.m. 2. [facility] accepts prescription medications (in pill form only) for disposal year round. Call for more information. 3. Contact the [facility] for the next [facility] sponsored prescription drug collection event. , [phone], or [phone]; Forms: Activity restrictions Discharge Date/Time: 03/27/23 20:17
--- NOTE | 2023-03-27 19:25 | XRAY Report ---
PROCEDURE: Shoulder 3 View RT INDICATIONS: R shoulder pain TECHNIQUE: 3 views of the shoulder were acquired. COMPARISON: None. FINDINGS: Bones: No fractures or dislocations. No suspicious bony lesions. Visualized ribs appear intact. Soft tissues: No suspicious soft tissue calcifications. IMPRESSION: No acute bony abnormality. If pain persists with conservative management, consider repeat radiographs in 10-14 days or cross-sectional imaging. Reviewed by: Pedro Orlando MD on 03/27/2023 7:23 PM PDT Approved by: Pedro Orlando MD on 03/27/2023 7:23 PM PDT Station ID: [id number]
== END 2023-03-27 20:17 | disposition home or self-care (01) ==
LOC: ED 17:20
DX: S46.911A Strain of unspecified muscle, fascia and tendon at shoulder and upper arm level, right arm, initial encounter (principal); M75.81 Other shoulder lesions, right shoulder; X50.0XXA Overexertion from strenuous movement or load, initial encounter; Y93.F2 Activity, caregiving, lifting; Y99.0 Civilian activity done for income or pay
CPT/HCPCS: 99283

== ENCOUNTER 2023-05-29 23:10 | Emergency (ER) | payer MEDICAID ==
[2023-05-29 23:31] LABS: BILIRUBIN,URINE NEGATIVE (NEGATIVE); GLUCOSE, URINE (UA) NEGATIVE (NEGATIVE); KETONES,URINE (UA) NEGATIVE (NEGATIVE); LEUKOCYTE ESTERASE, URINE NEGATIVE (NEGATIVE); NITRITE,URINE NEGATIVE (NEGATIVE); OCCULT BLOOD,URINE NEGATIVE (NEGATIVE); PH,URINE 7.5 PH (5.0-7.5); PROTEIN,URINE TRACE mg/dL (NEGATIVE); UROBILINOGEN,URINE 1 (NORMAL) E.U./dL (NORMAL)
[2023-05-29 23:36] LABS: CLARITY,URINE CLEAR (CLEAR); HCG UR QUAL NEGATIVE
[2023-05-29 23:54] LABS: BASOPHILS % (AUTO) 0.6 %; EOSINOPHILS # (AUTO) 0.1 10^3/uL (0.0-0.7); EOSINOPHILS % (AUTO) 1.2 %; HCT - HEMATOCRIT 37.9 % (37.0-47.0); HGB - HEMOGLOBIN 12.9 g/dL (12.0-16.0); LYMPHOCYTES # (AUTO) 2.5 10^3/uL (1.5-3.5); LYMPHOCYTES % (AUTO) 37.8 %; MEAN CORPUSCULAR HEMOGLOBIN 30.9 pg (27.0-31.0); MEAN CORPUSCULAR VOLUME 90.9 fL (81.0-99.0); MEAN PLATELET VOLUME 10.6 fL (7.9-10.8); MONOCYTES # (AUTO) 0.5 10^3/uL (0.0-1.0); MONOCYTES % (AUTO) 7.9 %; NEUTROPHILS # (AUTO) 3.4 10^3/uL (1.5-6.6); NEUTROPHILS % (AUTO) 52.5 %; PLT - PLATELET COUNT 269 10^3/uL (130-450); RED BLOOD COUNT 4.17 10^6/uL (4.20-5.40); RED CELL DISTRIBUTION WIDTH 12.8 % (12.0-15.0); WHITE BLOOD COUNT 6.6 x10^3/uL (4.8-10.8)
[2023-05-30 00:11] LABS: ALBUMIN 4.4 g/dL (3.2-5.5); ALBUMIN/GLOBULIN RATIO 2.1 (1.0-2.2); BILIRUBIN,TOTAL 0.6 mg/dL (0.2-1.0); CALCIUM 9.7 mg/dL (8.5-10.3); CREATININE 0.7 mg/dL (0.6-1.3); POTASSIUM 3.5 mmol/L (3.5-4.5); TOTAL PROTEIN 6.5 g/dL (6.4-8.9)
[2023-05-30] MEDS ORDERED: KETOROLAC 15 MG/ML VIAL IVP STA (01:26)
--- NOTE | 2023-05-30 01:27 | ED Physician Documentation ---
History of Present Illness - Stated complaint Stated Complaint: R UPPER ABD PX - Chief complaint Chief Complaint: Abd Pain - History obtained from History obtained from: Patient - Additonal information Additional information: 22yF, previously healthy with psh appendectomy in november, p/w LLQ / LUQ cramping pain since then, worsening tonight. denies nausea, fever, urinary sx, diarrhea. normal BM today. 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 HEENT: Other Psych: None - Past Surgical History Past Surgical History: Yes General: Appendectomy HEENT: Tonsil/Adenoidectomy - Present Medications Home Medications: Ambulatory Orders Medication Instructions Recorded Confirmed HYDROcod/ACETAM 5/325 [[place] 5/325] 1 - 2 ea PO Q6H PRN #10 tablet 03/27/23 Meloxicam [Mobic] 7.5 mg PO BID PRN #20 tablet 03/27/23 - Allergies Allergies/Adverse Reactions: Allergies Allergy/AdvReac Type Severity Reaction Status Date / Time Penicillins Allergy Edema Verified 05/29/23 23:14 - Social History Does the pt smoke?: No Smoking Status: Never smoker Does the pt drink ETOH?: No Does the pt have substance abuse?: No - Immunizations Immunizations are current?: Yes PD ED PE NORMAL - Vitals Vital signs reviewed: Yes - General General: Alert and oriented X 3, No acute distress, Well developed/nourished - HEENT HEENT: Atraumatic, PERRL, EOMI - Neck Neck: Supple, no meningeal sign - Cardiac Cardiac: RRR - Respiratory Respiratory: No respiratory distress, Clear bilaterally - Abdomen Abdomen: Non tender, Non distended - Back Back: No CVA TTP - Derm Derm: Normal color, Warm and dry Results - Vitals Vitals: Vital Signs - 24 hr 05/29/23 05/30/23 23:14 00:51 Temperature 36.5 C 36.8 C Heart Rate 81 75 Respiratory 16 16 Rate Blood Pressure 115/68 106/75 O2 Saturation 100 100 Oxygen O2 Source Room air - Labs Labs: Laboratory Tests 05/29/23 05/29/23 05/29/23 23:24 23:40 23:40 WBC 6.6 RBC 4.17 L Hgb 12.9 Hct 37.9 MCV 90.9 MCH 30.9 MCHC 34.0 RDW 12.8 Plt Count 269 MPV 10.6 Neut # (Auto) 3.4 Lymph # (Auto) 2.5 [place] # (Auto) 0.5 Eos # (Auto) 0.1 Baso # (Auto) 0.0 Absolute Nucleated RBC 0.00 Nucleated RBC % 0.0 Sodium 140 Potassium 3.5 Chloride 108 Carbon Dioxide 26 Anion Gap 6.0 BUN 12 Creatinine 0.7 Estimated GFR (MDRD) 107 Glucose 77 Calcium 9.7 Total Bilirubin 0.6 AST 49 H ALT 46 Alkaline Phosphatase 59 Total Protein 6.5 Albumin 4.4 Globulin 2.1 Albumin/Globulin Ratio 2.1 Lipase 27 Urine Color YELLOW Urine Clarity CLEAR Urine pH 7.5 Ur Specific [place] 1.020 Urine Protein TRACE Urine Glucose (UA) NEGATIVE Urine Ketones NEGATIVE Urine Occult Blood NEGATIVE Urine Nitrite NEGATIVE Urine Bilirubin NEGATIVE Urine Urobilinogen 1 (NORMAL) Ur Leukocyte Esterase NEGATIVE Ur Microscopic Review NOT INDICATED Urine Culture Comments NOT INDICATED Urine HCG, Qual NEGATIVE PD Medical Decision Making - ED course ED course: 22-year-old woman presented to the ED with abdominal pain since november, worsening today. cbc, abdominal panel, u/a hcg all normal. Her exam was benign and she is passing normal flatus and had a normal BM today therefore low suspicion for SBO. return precautions given. advised f/u with pcp. Departure - Departure Disposition: 01 Home, Self Care Clinical Impression: Abdominal pain Condition: Good Instructions: Abdominal Pain Comments: You were seen in the emergency department for Abdominal pain. Your lab work and urine test was normal. Please follow-up with your primary care provider and return to the emergency department if you have any new or worsening symptoms or other concerns. Forms: PCP List, Activity restrictions
[2023-05-30] MEDS ORDERED: KETOROLAC 15 MG/ML VIAL IM STA (01:51)
[2023-05-30 02:14] VITALS: BP 102/70; O2SAT 96
== END 2023-05-30 02:12 | disposition home or self-care (01) ==
LOC: ED 23:10
DX: R10.32 Left lower quadrant pain (principal); R10.12 Left upper quadrant pain
CPT/HCPCS: 36415; 80053; 81001; 81003; 81025; 83690; 85025; 87086; 96372; 99283

== ENCOUNTER 2023-09-30 22:40 | Emergency (ER) | payer OTHER, MEDICAID ==
[2023-09-30 22:50] VITALS: BP 126/74; O2SAT 100
--- NOTE | 2023-09-30 23:15 | XRAY Report ---
PROCEDURE: Ankle 3+V RT INDICATIONS: TWISTED/PAIN + TENDERNESS R ANKLE TECHNIQUE: 3 views of the ankle were acquired. COMPARISON: None. FINDINGS: Bones: No acute fracture. Fragmentation at the fibular tip likely due to remote injury. No dislocati ons. Ankle mortise is normally aligned. No suspicious bony lesions. Soft tissues: Probable mild swelling at the lateral malleolus. No tibiotalar joint effusion. Elsa s tendon appears normal. IMPRESSION: No acute fracture demonstrated. Probable mild swelling at the lateral malleolus. Probable sequelae of remote injury at the distal fibula. Reviewed by: Enrico Rodriguez MD on 09/30/2023 11:14 PM PST Approved by: Enrico Rodriguez MD on 09/30/2023 11:14 PM PST Station ID: [id number]
--- NOTE | 2023-10-01 00:01 | ED Physician Documentation ---
PD HPI LOWER EXT INJURY - Stated complaint Stated Complaint: RT ANKLE PX - Chief complaint Chief Complaint: Ext Problem - History obtained from History obtained from: Patient - Additional information Additional information: HPI from patient. At approximately 8:30 PM tonight while at work, patient was ambulating towards a door when she twisted her right ankle. She says the ankle everted then quickly inverted. She had sudden onset of pain, gradual swelling. Pain and swelling are both medial and lateral aspects of the right ankle, more pronounced at lateral aspect. Pain is exacerbated with weight-bearing, movement, palpation. She has h/o right distal fibular fracture. 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: Other Psych: Depression - Past Surgical History Past Surgical History: Yes General: Appendectomy HEENT: Tonsil/Adenoidectomy - Present Medications Home Medications: Ambulatory Orders Medication Instructions Recorded Confirmed Fluoxetine HCl [Prozac] 40 mg PO DAILY 09/30/23 09/30/23 - Allergies Allergies/Adverse Reactions: Allergies Allergy/AdvReac Type Severity Reaction Status Date / Time Penicillins Allergy Edema Verified 09/30/23 22:50 - Social History Does the pt smoke?: No Smoking Status: Never smoker Does the pt drink ETOH?: No Does the pt have substance abuse?: No - Immunizations Immunizations are current?: Yes PD ED PE NORMAL - Vitals Vital signs reviewed: Yes - General General: Alert and oriented X 3, No acute distress, Well developed/nourished - Neuro Neuro: No motor deficit, No sensory deficit PD ED PE EXPANDED - Extremities Extremities: Other (mild swelling lateral aspect of right ankle with moderate TTP. minimal/trace swelling and mild TTP medial aspect right ankle) Results - Vitals Vitals: Oxygen O2 Source Room air - Rads (name of study) right ankle xrays Relevant Findings:: Prelim report reviewed, See rad report PD Medical Decision Making - ED course Complexity details: reviewed results, considered differential, d/w patient ED course: Xrays are without evidence of acute abnormality; evidence of old distal fibular fracture noted. Results d/w patient. She declines crutches and air-cast splint, requests boot instead. She says the boot she had (no longer has) when she sustained right ankle fracture resulted in better compliance than the air cast splint. She declines crutches, saying she will get crutches on her own. We do not have short boot in patient's size and thus long boot is placed. 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 Departure - Departure Disposition: 01 Home, Self Care Clinical Impression: Right ankle sprain Qualifiers: Encounter type: initial encounter Involved ligament of ankle: unspecified ligament Qualified Code(s): S93.401A - Sprain of unspecified ligament of right ankle, initial encounter Condition: Good Instructions: ED Sprain Ankle W X Ray Comments: There was no evidence of acute injury on the x-rays tonight aside from some mild swelling on the outer aspect of the ankle (which is evident on the exam). As we discussed, the old/healed fibular fracture is seen on the x-ray. You can wait-bear as tolerated, but for the first 3 to 5 days, I recommend using/wearing the boot we have provided during the day. After 5 days, if you are still having significant pain with weight-bearing, continue to use the boot, but also seek follow-up with your primary care provider for reevaluation. Forms: PCP List Discharge Date/Time: 10/01/23 00:40
== END 2023-10-01 00:40 | disposition home or self-care (01) ==
LOC: ED 22:40
DX: S93.401A Sprain of unspecified ligament of right ankle, initial encounter (principal); X50.1XXA Overexertion from prolonged static or awkward postures, initial encounter
CPT/HCPCS: 1040M; 73610; 99283

== ENCOUNTER 2023-10-15 01:41 | Emergency (ER) | payer SELFPAY ==
[2023-10-15 01:54] VITALS: BP 105/63; O2SAT 99
[2023-10-15] MEDS: SODIUM CHLORIDE 0.9% 1,000 ML IV STA (02:06)
[2023-10-15] MEDS ORDERED: iohexoL-300 100 ML VIAL ONE (02:09)
[2023-10-15 02:12] LABS: BASOPHILS # (AUTO) 0.1 10^3/uL (0.0-0.1); BASOPHILS % (AUTO) 0.8 %; EOSINOPHILS # (AUTO) 0.1 10^3/uL (0.0-0.7); EOSINOPHILS % (AUTO) 1.1 %; HCT - HEMATOCRIT 45.7 % (37.0-47.0); HGB - HEMOGLOBIN 15.5 g/dL (12.0-16.0); LYMPHOCYTES % (AUTO) 37.5 %; MEAN CORPUSCULAR HEMOGLOBIN 30.6 pg (27.0-31.0); MEAN CORPUSCULAR HGB CONC 33.9 g/dL (32.0-36.0); MEAN CORPUSCULAR VOLUME 90.1 fL (81.0-99.0); MEAN PLATELET VOLUME 10.5 fL (7.9-10.8); MONOCYTES # (AUTO) 0.7 10^3/uL (0.0-1.0); MONOCYTES % (AUTO) 8.5 %; NEUTROPHILS # (AUTO) 4.1 10^3/uL (1.5-6.6); PLT - PLATELET COUNT 282 10^3/uL (130-450); RED BLOOD COUNT 5.07 10^6/uL (4.20-5.40); RED CELL DISTRIBUTION WIDTH 12.4 % (12.0-15.0); WHITE BLOOD COUNT 7.9 x10^3/uL (4.8-10.8)
[2023-10-15] MEDS: ONDANSETRON 4 MG/2 ML VIAL IVP STA (02:22)
[2023-10-15] MEDS: MORPHINE 2 MG/ML CARPUJECT IVP STA (02:22)
[2023-10-15 02:30] LABS: ALBUMIN 4.9 g/dL (3.2-5.5); ALBUMIN/GLOBULIN RATIO 1.6 (1.0-2.2); BILIRUBIN,TOTAL 0.5 mg/dL (0.2-1.0); CALCIUM 9.9 mg/dL (8.5-10.3); CREATININE 1.2 mg/dL (0.6-1.3); POTASSIUM 3.7 mmol/L (3.5-4.5); TOTAL PROTEIN 7.9 g/dL (6.4-8.9)
[2023-10-15] MEDS: KETOROLAC 30 MG/ML VIAL IVP STA (03:13)
[2023-10-15 03:16] LABS: BILIRUBIN,URINE NEGATIVE (NEGATIVE); GLUCOSE, URINE (UA) NEGATIVE (NEGATIVE); KETONES,URINE (UA) TRACE mg/dL (NEGATIVE); LEUKOCYTE ESTERASE, URINE TRACE (NEGATIVE); NITRITE,URINE NEGATIVE (NEGATIVE); OCCULT BLOOD,URINE NEGATIVE (NEGATIVE); PH,URINE 7.5 PH (5.0-7.5); PROTEIN,URINE TRACE mg/dL (NEGATIVE); UROBILINOGEN,URINE 1 (NORMAL) E.U./dL (NORMAL)
[2023-10-15 03:18] LABS: CLARITY,URINE CLEAR (CLEAR); HCG UR QUAL NEGATIVE
[2023-10-15 03:22] LABS: BACTERIA,URINE Few /HPF (None Seen); RBC,URINE 0-5 /HPF (0-5); SQUAMOUS EPITHELIAL CELL,UR MANY Squamous (<= Few)
[2023-10-15] MEDS: iohexoL-300 100 ML VIAL IVP ONE (03:51)
--- NOTE | 2023-10-15 04:39 | ED Physician Documentation ---
PD HPI ABD PAIN - Stated complaint Stated Complaint: ABD PX - Chief complaint Chief Complaint: Abd Pain - History obtained from History obtained from: Patient - Additional information Additional information: Patient is a 22-year-old female presenting for evaluation of left lower quadrant pain started about an hour and a half ago. She states it radiates to the back. She has associated nausea. No vomiting. Her last bowel movement was today. She did have an appendectomy last year. Denies concerns for . No vaginal bleeding or discharge. No fever. Denies any known sick contacts. Not emanuel makes his symptoms better or worse. Review of Systems Constitutional: denies: Fever Cardiac: denies: Chest pain / pressure Respiratory: denies: Dyspnea GI: reports: Abdominal Pain, Nausea. denies: Vomiting, Diarrhea : denies: Dysuria PD PAST MEDICAL HISTORY - Past Medical History Past Medical History: Yes [employer]: None HEENT: Other Psych: Depression - Past Surgical History Past Surgical History: Yes General: Appendectomy HEENT: Tonsil/Adenoidectomy - Present Medications Home Medications: Ambulatory Orders Medication Instructions Recorded Confirmed Fluoxetine HCl [Prozac] 40 mg PO DAILY 09/30/23 10/15/23 Magnesium Citrate [Citrate of 296 ml PO PRN PRN #296 ml 10/15/23 Magnesia] - Allergies Allergies/Adverse Reactions: Allergies Allergy/AdvReac Type Severity Reaction Status Date / Time Penicillins Allergy Edema Verified 10/15/23 01:52 - Social History Does the pt smoke?: No Smoking Status: Never smoker Does the pt drink ETOH?: No Does the pt have substance abuse?: No - Immunizations Immunizations are current?: Yes PD ED PE NORMAL - General General: Alert and oriented X 3, No acute distress, Well developed/nourished - HEENT HEENT: Atraumatic, Moist mucous membranes, Pharynx benign - Neck Neck: Supple, no meningeal sign - Cardiac Cardiac: RRR, Strong equal pulses - Respiratory Respiratory: No respiratory distress, Clear bilaterally - Abdomen Abdomen: Normal bowel sounds, Soft, Non distended, Other (Left lower quadrant tenderness to palpation, no rebound, no guarding, no palpable mass or hernia) - Derm Derm: Warm and dry - Neuro Neuro: Normal speech Results - Vitals Vitals: Vital Signs - 24 hr 10/15/23 01:48 Temperature 36.2 C L Heart Rate 93 Respiratory 17 Rate Blood Pressure 105/63 O2 Saturation 99 Oxygen O2 Source Room air - Labs Labs: Laboratory Tests 10/15/23 10/15/23 10/15/23 02:00 02:00 02:58 WBC 7.9 RBC 5.07 Hgb 15.5 Hct 45.7 MCV 90.1 MCH 30.6 MCHC 33.9 RDW 12.4 Plt Count 282 MPV 10.5 Neut # (Auto) 4.1 Lymph # (Auto) 3.0 [place] # (Auto) 0.7 Eos # (Auto) 0.1 Baso # (Auto) 0.1 Absolute Nucleated RBC 0.00 Nucleated RBC % 0.0 Sodium 139 Potassium 3.7 Chloride 105 Carbon Dioxide 27 Anion Gap 7.0 BUN 13 Creatinine 1.2 Estimated GFR (MDRD) 57 L Glucose 87 Calcium 9.9 Total Bilirubin 0.5 AST 19 ALT 15 Alkaline Phosphatase 73 Total Protein 7.9 Albumin 4.9 Globulin 3.0 Albumin/Globulin Ratio 1.6 Lipase 28 Urine Color YELLOW Urine Clarity CLEAR Urine pH 7.5 Ur Specific Ages [place] 1.015 Urine Protein TRACE Urine Glucose (UA) NEGATIVE Urine Ketones TRACE Urine Occult Blood NEGATIVE Urine Nitrite NEGATIVE Urine Bilirubin NEGATIVE Urine Urobilinogen 1 (NORMAL) Ur Leukocyte Esterase TRACE H Urine RBC 0-5 Urine WBC 4-5 Ur Squamous Epith Cells MANY Squamous H Urine Bacteria Few Ur Microscopic Review INDICATED Urine Culture Comments NOT INDICATED Urine HCG, Qual NEGATIVE PD Medical Decision Making - ED course Complexity details: reviewed results, re-evaluated patient, d/w patient ED course: Patient is a 22-year-old female presenting for evaluation of left lower quadrant pain. She does have tenderness on exam but no rebound or guarding. Vital signs are stable. Labs including CBC, chemistries, urinalysis and hCG were obtained and reviewed and without significant findings. Patient initially received IV fluids, IV Zofran and IV morphine. She additionally received IV Toradol with improvement in her symptoms. CT scan of the abdomen and pelvis was obtained which I reviewed. No acute findings other than moderate fecal retention. Patient reported having a bowel movement today. She clarifies though that she usually has issues with her bowel movements and often goes only once a week if that. She has tried courses of MiraLAX in the past including for the last 2 days. She does not feel like MiraLAX is helpful. She has tried stool softeners. She states that she did have a colonoscopy when she was 20 years old.She is resting more comfortably at this time. No indication of large ovarian cysts on CT scan. Discussed options for treatment of her constipation and patient is agreeable to trial of magnesium citrate. She understands importance of close outpatient follow-up. She is advised on strict return precautions. Departure - Departure Disposition: 01 Home, Self Care Clinical Impression: Left lower quadrant abdominal pain, Fecal retention Condition: Stable Instructions: ED Abdominal Pain Female Non-Specific Abdominal Pain, ED Constipation Prescriptions: Magnesium Citrate [Citrate of Magnesia] 296 ml PO PRN PRN #296 ml PRN Reason: Constipation Comments: Your lab testing is reassuring and does not show any significant abnormalities. Your CT scan also does not show any signs of infection or other surgical process. However you do have a moderate fecal retention. We did discuss your ongoing issues with constipation. I am sending a prescription for magnesium citrate to [facility] in [place]. I would recommend close follow-up with your primary care provider as you may benefit from a referral to gastroenterology. Return to the emergency department with any worsening. Forms: PCP List Discharge Date/Time: 10/15/23 05:34
--- NOTE | 2023-10-15 09:58 | CT Report ---
PROCEDURE: Abdomen/Pelvis W INDICATIONS: LLQ pain CONTRAST: OMNI 300, 100mls TECHNIQUE: After the administration of intravenous contrast, a CT scan of the abdomen and pelvis was performed. Images were recorded and evaluated at appropriate window settings. Reformats: coronal and sagittal. F or radiation dose reduction, the following was used: automated exposure control, adjustment of mA and /or kV according to patient size. COMPARISON: 03/05/2023 FINDINGS: Image quality: Diagnostic Lower chest: Basal atelectasis. Liver: Unremarkable, however the very top of the liver is not imaged. Gallbladder and biliary system: Unremarkable, nondilated Pancreas: No ductal dilation. Spleen: Nonenlarged Adrenals: No discrete nodules. Kidneys: No hydronephrosis or solid renal mass. Vessels and lymph nodes: The main portal vein is patent. No abdominal aortic aneurysm. No pathologic lymph nodes by size criteria. Bowel and peritoneum: The stomach is mildly distended. No evidence of small bowel obstruction. The ap pendix is not seen. No significant inflammatory changes identified. No pathologic ascites or drainabl e abscess. Overall fecal loading is moderate. Body wall: Unremarkable Pelvis: Bladder is underdistended. Reproductive organs without gross CT abnormality. These could be b doreen evaluated on ultrasound if necessary. Heterogeneous myometrial enhancement may represent promin ent vasculature versus additional small fibroids. Bones: No acute or suspicious osseous finding. IMPRESSION: No acute intra-abdominal abnormality. Moderate fecal loading. Mildly distended stomach. Other findings as above. Agree with preliminary report. Reviewed by: Leoncio Pappas MD on 10/15/2023 9:57 AM [facility] Approved by: Leoncio Pappas MD on 10/15/2023 9:57 AM PST Station ID: [id number]
== END 2023-10-15 05:34 | disposition home or self-care (01) ==
LOC: ED 01:41
DX: K59.00 Constipation, unspecified (principal); R10.32 Left lower quadrant pain; Z79.899 Other long term (current) drug therapy
CPT/HCPCS: 36415; 80053; 81001; 81003; 81025; 83690; 85025; 87086; 96374; 96375; 99284